=== PATIENT | male | born 1995 | race Hispanic/Latino ===

== ENCOUNTER 2020-12-23 10:42 | Emergency (ER) | payer OTHER ==
--- OUTSIDE RECORDS SUMMARY | 2020-12-23 10:45 | XMS REPORT | Continuity of Care Document ---
:1995 Author Organization [facility] t Address [address] [place] [address] [address]. [address] [place] [address] Care Team Providers Name Role Phone Wm STONE, Angelique Attending Clinician Problems This patient has no known problems. Allergies, Adverse Reactions, Alerts This patient has no known allergies or adverse reactions. Medications This patient has no known medications. Procedures This patient has no known procedures. Encounters Start End Encounter Admission Attending Care Care Encounter Source Date/Time Date/Time Type Type Clinicians Facility Department ID 2020-02-26 2020-02-26 Office [facility] [id number] 10:20:55 11:32:23 Visit Abel Hart [id number] Carla [id number] Cecil [id number] nal 044 [facility] [address] Results This patient has no known results.
--- NOTE | 2020-12-23 11:34 | ER ---
Nurse's Notes [facility] Name: Bishop Palafox Age: 25 yrs Sex: Male : 1995 Arrival Date: 12/23/2020 Time: 10:40 Bed 20 Private MD: Diagnosis: Insect bite (nonvenomous) of right hand-wasp;Insect bite (nonvenomous) of other part of head-wasp Presentation: 12/23 10:42 Chief complaint: Patient states: "I was stung by bees, three behind my Left ear and one vg1 on my Right hand." Pt also c/o dizziness. EMS stated administered 25 mg of Benadryl BRIDGE LEVERMAN. Coronavirus screen: Client denies travel out of the [place] in the last 14 days. Ebola Screen: Patient negative for fever greater than or equal to 101.5 degrees Fahrenheit, and additional compatible Ebola Virus Disease symptoms. Onset: The symptoms/episode began/occurred today. Anaphylaxis evaluation, no signs or symptoms of anaphylaxis were noted. Initial Sepsis Screen: Does the patient meet any 2 criteria? No. Patient's initial sepsis screen is negative. Does the patient have a suspected source of infection? No. Patient's initial sepsis screen is negative. Risk Assessment: Do you want to hurt yourself or someone else? Patient reports no desire to harm self or others. Onset of symptoms was December 23, 2020. 10:42 Method Of Arrival: EMS: [facility] vg1 10:42 Acuity: ARACELI 4 vg1 Triage Assessment: 10:30 General: Appears in no apparent distress. comfortable, Behavior is calm, cooperative. vg1 Pain: Denies pain. EENT: Throat is clear. Neuro: Level of Consciousness is awake, alert, obeys commands, Oriented to person, place, time, situation. Cardiovascular: Patient's skin is warm and dry. Respiratory: Airway is patent Respiratory effort is even, unlabored. GI: No signs and/or symptoms were reported involving the gastrointestinal system. : No signs and/or symptoms were reported regarding the genitourinary system. Derm: Skin is intact, is healthy with good turgor. Musculoskeletal: Circulation, motion, and sensation intact. Historical: - Allergies: 10:44 Phenergan; vg1 - Home Meds: 10:44 None [Active]; vg1 - PMHx: 10:44 None; vg1 - Immunization history:: Adult Immunizations up to date, Client reports receiving the 2nd dose of the Covid vaccine. - Social history:: Smoking status: Patient denies any tobacco usage or history of. Screenin:46 Abuse screen: Denies threats or abuse. Nutritional screening: No deficits noted. vg1 Tuberculosis screening: No symptoms or risk factors identified. Fall Risk No fall in past 12 months (0 pts). No secondary diagnosis (0 pts). IV access (20 points). Ambulatory Aid- None/Bed Rest/Nurse Assist (0 pts). Gait- Normal/Bed Rest/Wheelchair (0 pts) Mental Status- Oriented to own ability (0 pts). Total Rosales Fall Scale indicates No Risk (0-24 pts). Assessment: 10:46 Reassessment: see triage. vg1 11:48 Reassessment: Patient appears in no apparent distress at this time. Patient and/or vg1 family updated on plan of care and expected duration. Pain level reassessed. Patient is alert, oriented x 3, equal unlabored respirations, skin warm/dry/pink. Patient denies pain at this time. Patient states feeling better. Vital Signs: 10:42 BP 160 / 63; Pulse 55; Resp 16; Temp 97.9; Pulse Ox 100% ; Weight 65.77 kg; Height 5 vg1 ft. 6 in. (167.64 cm); Pain 0/10; 11:47 BP 105 / 70; Pulse 56; Resp 16; Pulse Ox 100% on R/A; vg1 10:42 Body Mass Index 23.40 (65.77 kg, 167.64 cm) vg1 ED Course: 10:40 Patient arrived in ED. vg1 10:41 Lynne Kwon FNP-C is [facility]. kb 10:41 John Coffey MD is Attending Physician. kb 10:44 Triage completed. vg1 10:45 Arm band placed on. vg1 10:45 Maintain EMS IV. Dressing intact. Good blood return noted. Site clean \\T\\ dry. Gauge \\T\\ vg 1 site: 20 L AC. 10:46 Bed in low position. Call light in reach. Side rails up X 1. vg1 10:46 No provider procedures requiring assistance completed. vg1 11:47 Rozina Johnson, RN is Primary Nurse. vg1 11:48 IV discontinued, intact, bleeding controlled, No redness/swelling at site. Pressure vg1 dressing applied. Administered Medications: No medications were administered Outcome: 11:34 Discharge ordered by MD. hodge 11:48 Discharged to home ambulatory, with [employer] Employee vg1 11:48 Condition: stable 11:48 Discharge instructions given to patient, Instructed on discharge instructions, follow up and referral plans. Demonstrated understanding of instructions, follow-up care. 11:49 Patient left the ED. vg1 Signatures: Lynne Kwon FNP-Rozina Long, RN RN vg1 Corrections: (The following items were deleted from the chart) 10:46 10:42 Chief complaint: Patient states: "I was stung by bees, three behind my Left ear vg1 and one on my Right hand." Pt also c/o dizziness vg1
[2020-12-23 12:45] VITALS: BP 105/70; TEMP 97.9; O2SAT 100
--- NOTE | 2020-12-24 11:50 | EDPHYS ---
Physician Documentation [facility] Name: Bishop Palafox Age: 25 yrs Sex: Male : 1995 Arrival Date: 12/23/2020 Time: 10:40 Bed 20 Private MD: ED Physician John Coffey HPI: 12/23 13:43 This 25 yrs old Male presents to ER via EMS with complaints of Bee Sting. kb 13:43 The patient was bitten on the left mastoid area and dorsal aspect of middle phalanx of kb right middle finger, by a wasp, for an unknown reason, at work. Onset: The symptoms/episode began/occurred just prior to arrival. Animal information: wasp. Associated signs and symptoms: The patient has no apparent associated signs or symptoms. Severity of symptoms: At their worst the symptoms were mild, in the emergency department the symptoms are unchanged. The patient has not experienced similar symptoms in the past. The patient has not recently seen a physician. Pt went into portapotty at work and was stung 3 times behind left ear and once on right middle finger by wasps. States he doesn't think he is allergic, but wanted to come in just in case he had a reaction. EMS reports pt was shaky on scene. Benadryl 25mg IV and 1L NS given in route. . Historical: - Allergies: 10:44 Phenergan; vg1 - Home Meds: 10:44 None [Active]; vg1 - PMHx: 10:44 None; vg1 - Immunization history:: Adult Immunizations up to date, Client reports receiving the 2nd dose of the Covid vaccine. - Social history:: Smoking status: Patient denies any tobacco usage or history of. ROS: 13:43 Constitutional: Negative for fever, chills, and weight loss. kb 13:43 Skin: Positive for wasp sting right middle finger and behind left ear. 13:43 All other systems are negative. Exam: 13:42 Constitutional: This is a well developed, well nourished patient who is awake, alert, kb and in no acute distress. Head/Face: Normocephalic, atraumatic. ENT: Moist Mucous membranes Cardiovascular: Regular rate and rhythm with a normal S1 and S2. No gallops, murmurs, or rubs. No pulse deficits. Respiratory: Respirations even and unlabored. No increased work of breathing, no retractions or nasal flaring. Abdomen/GI: Soft, non-tender. No distention Skin: Warm, dry with normal turgor. Normal color. MS/ Extremity: Pulses equal, no cyanosis. Neurovascular intact. Full, normal range of motion. Neuro: Awake and alert, GCS 15, oriented to person, place, time, and situation. Moves all extremities. Normal gait. Psych: Awake, alert, with orientation to person, place and time. Behavior, mood, and affect are within normal limits. Vital Signs: 10:42 BP 160 / 63; Pulse 55; Resp 16; Temp 97.9; Pulse Ox 100% ; Weight 65.77 kg; Height 5 vg1 ft. 6 in. (167.64 cm); Pain 0/10; 11:47 BP 105 / 70; Pulse 56; Resp 16; Pulse Ox 100% on R/A; vg1 10:42 Body Mass Index 23.40 (65.77 kg, 167.64 cm) vg1 MDM: 10:41 Patient medically screened. kb 13:42 Data reviewed: vital signs, nurses notes. Data interpreted: Pulse oximetry: on room air kb is 100 %. Interpretation: normal. Counseling: I had a detailed discussion with the patient and/or guardian regarding: the historical points, exam findings, and any diagnostic results supporting the discharge/admit diagnosis, the need for outpatient follow up, a family practitioner, to return to the emergency department if symptoms worsen or persist or if there are any questions or concerns that arise at home. 13:45 ED course: No signs of reaction to stings. No skin changes. Lungs clear bilaterally. kb Administered Medications: No medications were administered Disposition: 16:19 Co-signature as Attending Physician, John Coffey MD. rn Disposition Summary: 12/23/20 11:34 Discharge Ordered Location: Home kb Condition: Stable kb Diagnosis - Insect bite (nonvenomous) of right hand - wasp kb - Insect bite (nonvenomous) of other part of head - wasp kb Followup: kb - With: Emergency Department - When: As needed - Reason: Worsening of condition Followup: kb - With: Private Physician - When: 2 - 3 days - Reason: Recheck today's complaints, Continuance of care, Re-evaluation by your physician Discharge Instructions: - Discharge Summary Sheet kb - Bee, Wasp, or Hornet Sting, Adult kb Forms: - Medication Reconciliation Form kb - Thank You Letter kb - Antibiotic Education kb - Prescription Opioid Use kb Signatures: Lynne Kwon FNP-C FNP-Ckb Nieto, Roman, MD MD rn Rozina Johnson RN RN vg1
== END 2020-12-23 11:49 | disposition home or self-care (01) ==
LOC: ER 10:42
DX: S00.86XA Insect bite (nonvenomous) of other part of head, initial encounter (principal); Z88.8 Allergy status to other drugs, medicaments and biological substances
CPT/HCPCS: 99283

== ENCOUNTER 2024-04-25 18:54 | Emergency (ER) | payer OTHER ==
--- OUTSIDE RECORDS SUMMARY | 2024-04-25 18:57 | XMS REPORT | Continuity of Care Document ---
Author Name Unknown Address [address] [facility] [address] [place] [address] [facility] thconnect Address [address] [facility] [address] [place] [address] Care Team Providers Care Critical Systems Technician Name Role Phone Pcp, Pcp Primary Care Physician Unavailab BJ Cha Attending Clinician Unavailable Bj Valdez MD Attending Clinician [phone] MADELYN PARKER Attending Clinician Unavailable Abel Linn MD Attending Clinician + [phone] ABEL LNIN Attending Clinician Unavailkelli ble Doctor Unassigned, [place] Attending Clinician U shelly Christian RN, Amy Lim Attending Clinician Unavailab le Lab, Adc Fam Pob I Attending Clinician Unavailab Pamela tSevens Attending Clinician [phone] Only, Adc Test Attending Clinician Unavailable Eber Tinoco MD Attending Clinician [phone] EBER TINOCO Attending Clinician Unavailable Lorenza Eddy Attending Clinician [phone] Unknown, Attending Attending Clinician Unavailab le UNKNOWN, ATTENDING Attending Clinician Unavailab le Payers Payer Name Policy Type Policy Number Effective Date Expirati on Date Source AETNA HMO/CHOICE COMM [id number] 2019 00:00:00 AETNA CHOICE POS II [id number] 2019 00:00:00 [employer] CHOICE MEDICAID [id number] 2013 00:00:00 [employer] [place] - OUT OF STATE [id number] 2019 00:00:00 Problems Condition Name Condition Details Condition Category Status Onset Date Resolution Date Last Treatment Date Treating Clinician Comments Source Routine general medical examinatio n at a health care facility Routine general medical examinatio n at a health care facility Disease Active 12-28 00:00: 00 [facility] Allergies, Adverse Reactions, Alerts Allergy Name Allergy Type Status Severity Reaction(s) Onset Date Inactive Date Treating Clinician Comments Source Prometha danica Propensi ty to adverse reaction s Active Anaphylaxis, Anxiety, Dizziness, Palpitations , Shortness of breath 09-26 00:00: 00 Lory Mckenzie PROMETHA FRANCESNE DRUG INGREDI Active SOB 09-26 00:00: 00 [facility] Social History Social Habit Start Date Stop Date Quantity Comments Source Gender identity Raheem Hobson [facility] Sexual orientation [facility] Tobacco use and exposure 2024-04-11 00:00:00 2024-04-11 00:00:00 Smokeless tobacco non-user [facility] History of Social function 2024-04-11 00:00:00 2024-04-11 00:00:00 [facility] Exposure to SARS-CoV-2 (event) 2020-01-27 00:00:00 2020-02-26 11:00:00 Not sure [facility] Alcohol intake 2019-09-04 00:00:00 2019-09-04 00:00:00 Current drinker of alcohol (finding) [facility] Alcohol Comment 2015-12-26 00:00:00 2015-12-26 00:00:00 social [facility] Sex Assigned At 1995 00:00:00 1995 00:00:00 [facility] Smoking Status Start Date Stop Date Source Never smoked tobacco Lory Mckenzie Medications Ordered Medication Name Filled Medication Name Start Date Stop Date Current Medication? Ordering Clinician Indication Dosage Frequency Signature (SIG) Comments Components Source codeine-gua ifenesin 10-100 mg/5 mL solution 09-03 00:00: 02-25 00:00 :00 No [id number] 5mL Take 5 mL by mouth every 6 (six) hours as needed for Cough. [facility] benzonatate 200 mg capsule 09-03 00:00: 02-25 00:00 :00 No [id number] 200mg Take 1 capsule by mouth 3 (three) times daily as needed for Cough. [facility] doxycycline hyclate 100 mg tablet 09-03 00:00: 09-11 04:59 :00 No [id number] 100mg Take 1 tablet by mouth 2 (two) times daily for 7 days. [facility] ondansetron (CECILIO CHAN,) 4 mg tablet 08-25 00:00: 02-25 00:00 :00 No 4mg Take 1 tablet by mouth every 8 (eight) hours as needed for Nausea and Vomiting (N/V). [facility] ibuprofen 600 mg tablet 08-25 00:00: 02-25 00:00 :00 No 600mg Take 1 tablet by mouth every 6 (six) hours as needed for Pain unrelieved by Tylenol or Temp > 38.5 C. [facility] oseltamivir (TAMIFLU) 75 mg capsule 08-25 00:00: 02-25 00:00 :00 No 75mg Take 1 capsule by mouth 2 (two) times daily. [facility] Vital Signs Vital Name Observation Time Observation Value Comments S evaristobrittany Systolic blood pressure 2024-04-11 11:48:00 134 mm[Hg] [facility] Diastolic blood pressure 2024-04-11 11:48:00 82 mm[Hg] [facility] Heart rate 2024-04-11 11:48:00 62 /min Santiago woody [facility] Body height 2024-04-11 11:48:00 167.6 cm [facility] Body weight 2024-04-11 11:48:00 71.215 kg [facility] BMI 2024-04-11 11:48:00 25.34 kg/m2 Raheem rial Joce [facility] Systolic blood pressure 2024-04-11 11:48:00 134 mm[Hg] Alexus morin [facility] Diastolic blood pressure 2024-04-11 11:48:00 82 mm[Hg] Alexus morin [facility] Heart rate 2024-04-11 11:48:00 62 /min Memor bong Hobson [facility] Body height 2024-04-11 11:48:00 167.6 cm Raheem wesley Hobson [facility] Body weight 2024-04-11 11:48:00 71.215 kg Raheemestefania Hobson [facility] BMI 2024-04-11 11:48:00 25.34 kg/m2 Raheemestefania Hobson [facility] Systolic blood pressure 2020-02-26 16:02:00 111 mm[Hg] [facility] Diastolic blood pressure 2020-02-26 16:02:00 66 mm[Hg] [facility] Heart rate 2020-02-26 16:02:00 69 /min Unive [facility] Body temperature 2020-02-26 16:02:00 36.61 Ines [facility] Body height 2020-02-26 16:02:00 170.2 cm Univ [facility] Body weight 2020-02-26 16:02:00 66.679 kg [facility] BMI 2020-02-26 16:02:00 23.02 kg/m2 [facility] Oxygen saturation in Arterial blood by Pulse oximetry 2020-02-26 16:02:00 98 /min [facility] Systolic blood pressure 2020-02-26 16:02:00 111 mm[Hg] [facility] Diastolic blood pressure 2020-02-26 16:02:00 66 mm[Hg] [facility] Heart rate 2020-02-26 16:02:00 69 /min Unive [facility] Body temperature 2020-02-26 16:02:00 36.61 Ines [facility] Body height 2020-02-26 16:02:00 170.2 cm Univ [facility] Body weight 2020-02-26 16:02:00 66.679 kg [facility] BMI 2020-02-26 16:02:00 23.02 kg/m2 Univ [facility] Oxygen saturation in Arterial blood by Pulse oximetry 2020-02-26 16:02:00 98 /min [facility] Systolic blood pressure 2019-09-04 23:17:00 143 mm[Hg] [facility] Diastolic blood pressure 2019-09-04 23:17:00 89 mm[Hg] [facility] Heart rate 2019-09-04 23:17:00 69 /min [facility] Body temperature 2019-09-04 23:17:00 37.06 Ines [facility] Respiratory rate 2019-09-04 23:17:00 16 /min [facility] Body height 2019-09-04 23:17:00 170.2 cm [facility] Body weight 2019-09-04 23:17:00 65.59 kg [facility] BMI 2019-09-04 23:17:00 22.65 kg/m2 [facility] Oxygen saturation in Arterial blood by Pulse oximetry 2019-09-04 23:17:00 97 /min [facility] Procedures Procedure Date / Time Performed Performing Clinician Source Testosterone Level Total 2024-04-11 00:00:00 Alexus yo Estrogen, Total 2024-04-11 00:00:00 Santiago Hobson [facility] Luteinizing Hormone 2024-04-11 00:00:00 M temi Hobson Epic Prolactin Level 2024-04-11 00:00:00 Memashok Hobson Epic Follicle stimulating hormone 2024-04-11 00:00:00 Alexus yo TDAP VACCINE, >11 YRS, IM 2020-02-26 16:19:31 Abel Linn [facility] CONSENT/REFUSAL FOR DIAGNOSIS AND TREATMENT 2019-12-19 18:46:07 Doctor Unassigned, [place] [facility] ASSIGNMENT OF BENEFITS 2019-12-19 18:45:46 Docto r Unassigned, [place] [facility] Encounters Start Date/Time End Date/Time Encounter Type Admission Type Attending Clinicians Care Facility Care Department Encounter ID Source 2024-04-11 10:41:54 2024-04-11 23:59:00 Outpatient BJ VALDEZ EOUT EOUT [id number] EOUT 2024-04-11 11:00:00 2024-04-11 11:10:00 Office Visit Bj Valdez [id number] Lory Mckenzie 2020-10-10 14:50:00 2020-10-10 14:50:00 Outpatient MADELYN PARKRE [facility] [id number] [facility] 2020-09-19 14:30:00 2020-09-19 14:30:00 Outpatient [facility] [id number] [facility] 2020-02-26 10:20:55 2020-02-26 11:32:23 Office Visit Abel Linn [facility] [id number] [id number] [id number] [id number] 2020-02-26 10:20:55 2020-02-26 11:32:23 Office Visit Abel Linn [facility] [id number] [id number] [id number] [id number] [facility] 2020-02-26 10:30:00 2020-02-26 10:30:00 Outpatient R ABEL LINN [facility] [id number] [facility] 2020-02-12 00:00:00 2020-02-12 00:00:00 Patient Secure Msg Doctor Unassigned, [place] [facility] [id number] [id number] 4.2.7.2.686 [id number] [facility] 2020-02-12 00:00:00 2020-02-12 00:00:00 Letter (Out) Amy Christian [facility] [id number] [id number] [id number] [id number] [facility] 2020-02-11 07:57:42 2020-02-11 08:17:42 Laboratory Only Lab, Adc Fam Pob Primo Kathy [facility] [address] 1.114 [id number] [id number] [id number] [facility] 2020-02-11 08:00:00 2020-02-11 08:00:00 Outpatient R [facility] [id number] [facility] 2019-12-28 15:30:00 2019-12-28 15:30:00 Outpatient R [facility] [id number] [facility] 2019-12-19 13:48:53 2019-12-19 17:33:22 Laboratory Only Only, Adc Test Eber Tinoco [facility] 1.114 350.1.13.10 4.2.7.2.686 [id number] [facility] 2019-12-19 14:15:00 2019-12-19 14:15:00 Outpatient R EBER TINOCO [facility] [id number] [facility] 2019-12-19 00:00:00 2019-12-19 00:00:00 Orders Only Doctor Unassigned, [place] [facility] 1.114 350.1.13.10 4.2.7.2.686 [id number] [facility] 2019-09-04 18:13:48 2019-09-04 18:28:48 Urgent Care Lorenza Cutler Unknown, Attending [facility] 1.114 350.1.13.10 [id number] [id number] [facility] 2019-09-04 18:15:00 2019-09-04 18:15:00 Outpatient R UNKNOWN, ATTENDING [facility] [id number] [facility] Notes Assessment and Plan: pcoming Encounters Date/Time Note Provider Source 2024-04-11 15:35:37 Bj Valdez MD - 04/11/2024 11:00 AM CDT Subjective Bishop Palafox is a 28 y.o. male who presents for evaluation of Consult (Low T) Patient reports feeling fatigued depressed with low energy and low libido. He has been evaluated by the his primary care. He was diagnosed with anxiety with decreased concentration depressed mood, worry insomnia nervous and anxious behavior. He was also noted to be vitamin D deficient and was started on replacement. A full panel of labs was performed and he was noted to be borderline low on his testosterone at 353. His free serum testosterone was 40. His bioavailable testosterone was 93. He is with 2 children. Not interested in any fertility in the future He reports that his dad and 2 uncles were recently diagnosed with colorectal cancer and this is very concerning to him On exam he has bilateral normal testes to palpation. Size is normal and symmetric. There is no tumors masses or abnormalities. Penis is normal to inspection. Explained to the patient the findings on his labs and explained that further workup is necessary. His labs were collected in the afternoon and this may account for a natural dip in his testosterone I recommended that we recheck a full panel including repeat testosterone, FSH, LH H, prolactin, estrogen Treatment options will be discussed after the following has been obtained No questionnaires on file. Medical History No past medical history on file. There is no problem list on file for this patient. No past surgical history on file. No family history on file. Allergies Allergen Reactions Promethazine Anaphylaxis, Anxiety, Dizziness, Palpitations and Shortness of breath Review of Systems Pertinent findings from review of systems noted in HPI. Objective BP 134/82 | Pulse 62 | Ht 1.676 m (5' 6") | Wt 71.2 kg (157 lb) | BMI 25.34 kg/m? General Appearance: Alert, cooperative, no distress, appropriate for age HEENT: Normocephalic, EOM's intact, conjunctiva and corneas clear, moist mucous membranes Lungs: Respirations unlabored : Per HPI Abdomen: Soft, non-tender, bowel sounds active all four quadrants, no mass, or organomegaly Musculoskeletal: Tone and strength strong and symmetrical, all extremities Skin/Hair/Nails: Skin warm, dry, and intact, no rashes or abnormal dyspigmentation Neurologic: Alert and oriented x3 Results Review: Assessment & Plan Diagnoses and all orders for this visit: Low testosterone in male - Testosterone Level Total; Future - Estrogen, Total; Future - Luteinizing Hormone; Future - Prolactin Level; Future - Follicle stimulating hormone; Future Other orders - Follow Up In Urology; Future [facility] Scheduled Orders Name Type Priority Associated Diagnoses Orde r Schedule Testosterone Level Total Lab Routine Low testost erone in male Expected: 04/11/2024 (Approximate), Expires: 04/11/2025 Estrogen, Total Lab Routine Low testosterone in male Expected: 04/11/2024 (Approximate), Expires: 04/11/2025 Luteinizing Hormone Lab Routine Low testosterone in male Expected: 04/11/2024 (Approximate), Expires: 04/11/2025 Prolactin Level Lab Routine Low testosterone in male Expected: 04/11/2024 (Approximate), Expires: 04/11/2025 Follicle stimulating hormone Lab Routine Low testosterone in male Expecte d: 04/11/2024 (Approximate), Expires: 04/11/2025 Health Maintenance Due Date Last Done Comments Varicella Vaccines (1 of 2 - 13+ 2-dose series) 2010 Hepatitis B Vaccines (1 of 3 - 19+ 3-dose series) 2016 Influenza Vaccine (#1) 2024 DTaP/Tdap/Td Vaccines (2 - T d or Tdap) 02/25/2030 02/26/2020 HPV Vaccines Completed 01/10/2023, 01/16/2021, 11/20/2020 HIB Vaccines Aged Out No longer eligi ble based on patient's age to complete this topic Hepatitis A Vaccines Aged Out No long er eligible based on patient's age to complete this topic IPV Vaccines Aged Out No longer eligi ble based on patient's age to complete this topic Meningococcal Vaccine Aged Out No aminata chente eligible based on patient's age to complete this topic Pneumococcal Vaccine: Pediatrics (0 to 5 Years) and At-Risk Patients (6 to 64 Years) Aged Out No longer eligible b ased on patient's age to complete this topic Rotavirus Vaccines Aged Out No longer eligible based on patient's age to complete this topic [id number] 15:35:37 Diagnosis Low testosterone in male - P rimary [id number] 15:35:37 [id number] 15:35:37* [facility] Joce
[2024-04-25] MEDS ORDERED: NA CHLORIDE 0.9% 1,000 ML ONE (20:08)
[2024-04-25] MEDS ORDERED: ONDANSETRON 4 MG/2 ML VIAL ONE (20:08)
[2024-04-25] MEDS ORDERED: KETOROLAC 30 MG/ML INJ ONE (20:08)
[2024-04-25 20:21] LABS: Absolute Eosinophils 0.1 K/uL (0-0.5); Absolute Lymphocytes (CBC) 1.9 K/uL (0.7-4.9); Absolute Monocytes 0.4 K/uL (0.1-1.3); Basophils % 0.3 % (0-1.3); Eosinophils % 1.2 % (0-4.4); Hemoglobin 15.9 g/dL (13.6-17.9); Lymphocytes % 34.4 % (15.3-44.8); MCHC 34.5 g/dL (32.0-36.0); MCV 89.9 fL (80-100); MPV 8.7 fL (7.6-11.3); Monocytes % 7.6 % (3.3-12.3); Neutrophils % 56.5 % (41.7-73.7); Nucleated Red Blood Cells % 0.2 % (0-0); Platelets 226 thou/uL (152-406); RBC Red Blood Cell Count 5.12 M/uL (4.33-5.43); Red Cell Distribution Width 12.7 % (12.1-15.2)
[2024-04-25 20:29] LABS: Specific Gravity 1.016 (1.005-1.030); Sqamous Epithelial None Seen /HPF (None Seen); Urine Bacteria None Seen /HPF (<20); Urine Bilirubin NEGATIVE (Negative); Urine Blood Negative (Negative); Urine Clarity Extremely Turbid (Clear); Urine Color Colorless (Yellow); Urine Culture Reflex Order NOT NEEDED; Urine Glucose NEGATIVE (Negative); Urine Ketones NEGATIVE (Negative); Urine Microscopic Reflex YN ORDER UMIC; Urine Nitrite NEGATIVE (Negative); Urine Protein NEGATIVE (Negative); Urine RBC <5 /HPF (None Seen); Urine Urobilinogen Normal (Normal); Urine WBC None Seen /HPF (<5); Urine pH 7.5 (5.0-7.0)
[2024-04-25 20:42] LABS: Albumin 4.2 g/dL (3.4-5.0); Albumin/Globulin Ratio 1.1 (1.1-1.8); Anion Gap 6.4 mEq/L (5.0-15.0); Bilirubin Total 0.4 mg/dL (0.2-1.0); Globulin 3.9 g/dL (2.3-3.5); Potassium 3.4 mEq/L (3.5-5.1); Protein, Total 8.1 g/dL (6.4-8.2)
--- NOTE | 2024-04-25 21:27 | RAD REPORT ---
EXAMINATION: CT ABDOMEN AND PELVIS WITH CONTRAST CLINICAL INDICATION: ABD PAIN TECHNIQUE: CT abdomen and pelvis was performed, after the administration of IV contrast, as per [facility] protocol. Axial, sagittal and coronal reconstructions were obtained. One or more of the following dose reduction techniques were used: Automated exposure control, adjustment of the mA and k V according to patient size, and iterative reconstruction. Unless otherwise specified, incidental findings do not require dedicated imaging follow-up. COMPARISON: No prior exam. FINDINGS: LOWER CHEST: The visualized lung bases are clear. LIVER: Normal in size and contour. No focal lesion. Grossly unremarkable gallbladder. SPLEEN: Normal size. No focal lesion. PANCREAS: No mass, ductal dilation, or nixon-pancreatic fluid. ADRENALS: Normal; no mass. KIDNEYS: Normal size and contour. No hydronephrosis. GASTROINTESTINAL TRACT: No evidence of free air, significant intra-abdominal free fluid, bowel obstru ction or abscess. APPENDIX: Normal appendix. LYMPH NODES: No lymphadenopathy. MUSCULOSKELETAL: No acute or suspicious osseous abnormality. ADDITIONAL FINDINGS: None. IMPRESSION: No acute or concerning abnormalities seen in the abdomen or pelvis.
--- NOTE | 2024-04-25 21:39 | EDPHYS ---
Physician Documentation [facility] Name: Bishop Palafox Age: 28 yrs Sex: Male : 1995 Arrival Date: 04/25/2024 Time: 18:54 Bed 24 Private MD: ED Physician Candido Blevins HPI: 04/25 19:41 This 28 yrs old Male presents to ER via Unassigned with complaints of stomach kb pain. 19:41 Pt is a 28 year old male who presents for abd pain and nausea that started 7 days ago. kb Denies vomiting, diarrhea, fever. No aggravating or alleviating factors. . Historical: - Allergies: 19:42 Phenergan; cm10 - Home Meds: 19:42 None [Active]; cm10 - PMHx: 19:42 None; cm10 - PSHx: 19:42 None; cm10 - Immunization history:: Adult Immunizations up to date. - Infectious Disease History:: Denies. - Social history:: Smoking status: Patient denies any tobacco usage or history of. ROS: 19:43 Constitutional: As per HPI kb Exam: 19:43 Constitutional: This is a well developed, well nourished patient who is awake, alert, kb and in no acute distress. Head/Face: Normocephalic, atraumatic. ENT: Moist Mucous membranes Cardiovascular: Regular rate Respiratory: Respirations even and unlabored. No increased work of breathing. Talking in full sentences Skin: Warm, dry with normal turgor. Normal color. MS/ Extremity: Pulses equal, no cyanosis. Neurovascular intact. Full, normal range of motion. Neuro: Awake and alert, GCS 15, oriented to person, place, time, and situation. 19:43 Abdomen/GI: Inspection: abdomen appears normal, Bowel sounds: normal, in all quadrants, Palpation: soft, in all quadrants, mild abdominal tenderness, in the right lower quadrant and left lower quadrant, Vital Signs: 19:41 BP 125 / 95; Pulse 71; Resp 17; Temp 97.7(TE); Pulse Ox 100% ; Weight 72.57 kg; Pain cm10 7/10; 20:30 BP 112 / 79; Pulse 60; Resp 16; Pulse Ox 98% on R/A; jb4 19:41 Pain Scale: Adult cm10 MDM: 19:40 Medical Screening Exam initiated kb 21:38 Differential diagnosis: dehydration, abnormal electrolytes, abd infection. Data kb reviewed: vital signs, nurses notes. Counseling: I had a detailed discussion with the patient and/or guardian regarding the historical points, exam findings, and any diagnostic results supporting the discharge/admit diagnosis, lab results, radiology results, the need for outpatient follow up, a family practitioner, to return to the emergency department if symptoms worsen or persist or if there are any questions or concerns that arise at home. 04/25 19:42 Order name: CBC with Diff; Complete Time: 20:39 kb 04/25 19:42 Order name: CMP; Complete Time: 20:44 kb 04/25 19:42 Order name: Lipase; Complete Time: 20:44 kb 04/25 19:42 Order name: Urinalysis w/ reflexes; Complete Time: 20:39 kb 04/25 19:42 Order name: CT Abd/Pelvis - IV Contrast Only; Complete Time: 21:34 kb 04/25 19:42 Order name: IV Saline Lock; Complete Time: 20:22 kb 04/25 19:42 Order name: Labs collected and sent; Complete Time: 20:22 kb Administered Medications: 20:17 Drug: Ondansetron IVP 4 mg IVP once; over 2 minutes Route: IVP; Site: left antecubital; jb4 21:57 Follow up: Response: No adverse reaction; Marked relief of symptoms jb4 20:17 Drug: Ketorolac IVP 15 mg IVP once Route: IVP; Site: left antecubital; jb4 21:57 Follow up: Response: No adverse reaction; Marked relief of symptoms jb4 20:18 Drug: NS 0.9% IV 1000 ml IV at 1000 ml once; to be given as a bolus over 60 minutes jb4 Route: IV; Rate: 1000 ml; Site: left antecubital; 21:57 Follow up: Response: No adverse reaction; IV Status: Completed infusion; IV Intake: jb4 800ml ; Pt discharged prior to infusion completion Disposition: 20:09 Co-signature as Attending Physician, Candido Blevins I agree with the assessment ci and plan of care. I reviewed the patient's care provided by the Advanced Practice Provider and agree with the diagnosis and treatment plan. Disposition Summary: 04/25/24 21:38 Discharge Ordered Notes: Location: Home kb Condition: Stable kb Diagnosis - Abdominal pain, Generalized kb Followup: kb - With: Emergency Department - When: As needed - Reason: Worsening of condition Followup: kb - With: Private Physician - When: 2 - 3 days - Reason: Recheck today's complaints, Continuance of care, Re-evaluation by your physician Discharge Instructions: - Discharge Summary Sheet kb - Abdominal Pain, Adult, Thpi-ao-Effp kb Forms: - Medication Reconciliation Form kb - Antibiotic Education kb - Prescription Opioid Use kb - Patient Portal Instructions kb - Leadership Thank You Letter kb Prescriptions: - Zofran 4 mg Oral tablet - take 1 tablet ORAL route every 6 hours As needed; 20 tablet; Refills: 0, kb Product Selection Permitted Signatures: Dispatcher [employer] EDMS Lynne Kwon, WENDY CARCAMO-Castillo Hurley, RN RN jb4 Leticia Comer RN RN cm10 Candido Blevins
--- NOTE | 2024-04-25 21:39 | ER ---
Nurse's Notes [facility] Name: Bishop Palafox Age: 28 yrs Sex: Male : 1995 Arrival Date: 04/25/2024 Time: 18:54 Bed 24 Private MD: Diagnosis: Abdominal pain, Generalized Presentation: 04/25 19:41 Chief complaint: Patient states: Abdominal pain onset . Pt also reports cm10 bloating, nausea and back pain. PT states that the pain in his abdomen differs in location. Coronavirus screen: Client denies travel out of the [place] in the last 14 days. Ebola Screen: Patient denies travel to an Ebola-affected area in the 21 days before illness onset. No symptoms or risks identified at this time. Initial Sepsis Screen: Does the patient meet any 2 criteria? No. Patient's initial sepsis screen is negative. Does the patient have a suspected source of infection? No. Patient's initial sepsis screen is negative. Risk Assessment: Do you want to hurt yourself or someone else? Patient reports no desire to harm self or others. Onset of symptoms was April 19, 2024. 19:41 Method Of Arrival: Ambulatory cm10 19:41 Acuity: ARACELI 2 cm10 Triage Assessment: 19:43 General: Appears in no apparent distress. comfortable, Behavior is calm, cooperative, cm10 appropriate for age. Neuro: No deficits noted. Level of Consciousness is awake, alert, obeys commands, Oriented to person, place, time, situation, Appropriate for age. Respiratory: No deficits noted. Airway is patent Respiratory effort is even, unlabored, Respiratory pattern is regular, symmetrical. GI: Reports lower abdominal pain, upper abdominal pain. Historical: - Allergies: 19:42 Phenergan; cm10 - Home Meds: 19:42 None [Active]; cm10 - PMHx: 19:42 None; cm10 - PSHx: 19:42 None; cm10 - Immunization history:: Adult Immunizations up to date. - Infectious Disease History:: Denies. - Social history:: Smoking status: Patient denies any tobacco usage or history of. Screenin:18 [facility] ED Fall Risk Assessment (Adult) History of falling in the last 3 months, jb4 including since admission No falls in past 3 months (0 pts) Confusion or Disorientation No (0 pts) Intoxicated or Sedated No (0 pts) Impaired Gait No (0 pts) Mobility Assist Device Used No (0 pt) Altered Elimination No (0 pt) Score/Fall Risk Level 0 - 2 = Low Risk Oriented to surroundings, Maintained a safe environment. Abuse screen: Denies threats or abuse. Nutritional screening: No deficits noted. Tuberculosis screening: No symptoms or risk factors identified. Assessment: 20:18 General: Appears in no apparent distress. comfortable, Behavior is calm, cooperative, jb4 appropriate for age. Pain: Complains of pain in right upper quadrant Pain does not radiate. Pain currently is 4 out of 10 on a pain scale. Quality of pain is described as crampy, Pain began 04/19/24. Neuro: Level of Consciousness is awake, alert, obeys commands, Oriented to person, place, time, situation. Cardiovascular: Patient's skin is warm and dry. Respiratory: Airway is patent Respiratory effort is even, unlabored, Respiratory pattern is regular, symmetrical. GI: Abdomen is flat, non-distended, Abd is soft X 4 quads Abd is non tender in left upper quadrant, right lower quadrant and left lower quadrant Abdomen is tender to palpation in right upper quadrant Reports lower abdominal pain, upper abdominal pain, constipation, cramping, nausea. Derm: Skin is intact, Skin is pink, warm \T\ dry. Musculoskeletal: Circulation, motion, and sensation intact. Range of motion: intact in all extremities. 21:56 Reassessment: Patient appears in no apparent distress at this time. Patient and/or jb4 family updated on plan of care and expected duration. Pain level reassessed. Patient is alert, oriented x 3, equal unlabored respirations, skin warm/dry/pink. Vital Signs: 19:41 BP 125 / 95; Pulse 71; Resp 17; Temp 97.7(TE); Pulse Ox 100% ; Weight 72.57 kg; Pain cm10 7/10; 20:30 BP 112 / 79; Pulse 60; Resp 16; Pulse Ox 98% on R/A; jb4 19:41 Pain Scale: Adult cm10 ED Course: 19:00 Patient arrived in ED. ra3 19:40 Lyn[facility]won [facility]. kb 19:40 Candido Blevins is Attending Physician. kb 19:42 Triage completed. cm10 19:42 Arm band placed on right wrist. Patient placed in waiting room. cm10 20:18 Patient has correct armband on for positive identification. Bed in low position. Call jb4 light in reach. Side rails up X 1. Provided Education on: plan of care. 20:18 Inserted saline lock: 20 gauge in left antecubital area, using aseptic technique. jb4 ,using aseptic technique. Started by BERNARD Knox tech. Blood collected. 21:12 CT Abd/Pelvis - IV Contrast Only In Process Unspecified. EDMS 21:37 Castillo Ramirez, RN is Primary Nurse. jb4 21:56 No provider procedures requiring assistance completed. IV discontinued, intact, jb4 bleeding controlled, No redness/swelling at site. Pressure dressing applied. Administered Medications: 20:17 Drug: Ondansetron IVP 4 mg IVP once; over 2 minutes Route: IVP; Site: left antecubital; jb4 21:57 Follow up: Response: No adverse reaction; Marked relief of symptoms jb4 20:17 Drug: Ketorolac IVP 15 mg IVP once Route: IVP; Site: left antecubital; jb4 21:57 Follow up: Response: No adverse reaction; Marked relief of symptoms jb4 20:18 Drug: NS 0.9% IV 1000 ml IV at 1000 ml once; to be given as a bolus over 60 minutes jb4 Route: IV; Rate: 1000 ml; Site: left antecubital; 21:57 Follow up: Response: No adverse reaction; IV Status: Completed infusion; IV Intake: jb4 800ml ; Pt discharged prior to infusion completion Medication: 20:18 VIS not applicable for this client. jb4 Intake: 21:57 IV: 800ml; Total: 800ml. jb4 Outcome: 21:38 Discharge ordered by . naveen 21:56 Discharged to home ambulatory, jb4 21:56 Condition: stable 21:56 Discharge instructions given to patient, Instructed on discharge instructions, follow up and referral plans. medication usage, Demonstrated understanding of instructions, follow-up care, medications, Prescriptions given X 1, 21:56 Patient left the ED. jb4 Signatures: Dispatcher [employer] EDCT Lynne Kwon, ARNULFOC DONA-Castillo Hurley RN JIE jb4 Leticia Comer RN RN cm10 Meléndez, ra3
[2024-04-25 22:37] VITALS: TEMP 97.7
[2024-04-25 22:38] VITALS: BP 112/79; O2SAT 98
== END 2024-04-25 21:56 | disposition home or self-care (01) ==
LOC: ER 18:54
DX: R10.84 Generalized abdominal pain (principal)
CPT/HCPCS: 85025; 81001; 36415; 83690; 80053; 74177; Q9967; J2405; J7030; 96361; 96374; 96375; 99284